=== PATIENT | female | born 1940 | race Caucasian/White ===

== ENCOUNTER 2021-11-25 10:02 | Emergency (ER) | payer MEDICARE, BC ==
[2021-11-25] MEDS ORDERED: Losartan 50 MG Tab PO ONE (11:22)
== END 2021-11-25 11:57 | disposition home or self-care (01) ==
LOC: JP.ED 10:02
DX: I10 Essential (primary) hypertension (principal); R41.0 Disorientation, unspecified; N30.00 Acute cystitis without hematuria
CPT/HCPCS: 36415; 70450; 80053; 81001; 84443; 85025; 87086; 87088; 87186; 99283; 99285-25; A9270-GY

== ENCOUNTER 2024-02-11 13:59 | Emergency (ER) | payer MEDICARE, BC ==
[2024-02-11 14:37] LABS: BASOPHILS ABSOLUTE AUTO 0.02 K/uL (0.00-0.10); BASOPHILS PERCENT AUTO 0.2 % (0.1-1.3); HEMATOCRIT 39.1 % (34.3-46.0); HEMOGLOBIN 13.8 g/dL (11.2-15.5); IMMATURE GRAN ABSOLUTE AUTO 0.04 K/uL (0.00-0.23); IMMATURE GRAN PERCENT AUTO 0.4 % (0.0-0.7); LYMPHOCYTES ABSOLUTE AUTO 0.44 K/uL (0.8-3.3); LYMPHOCYTES PERCENT AUTO 4.2 % (11.4-47.7); MEAN CORPUSCULAR HEMOGLOBIN 31.1 pg (31.6-35.5); MEAN CORPUSCULAR HGB CONC 35.3 g/dL (31.6-35.5); MEAN CORPUSCULAR VOLUME 88.1 fL (81.4-99.0); MONOCYTES ABSOLUTE AUTO 0.24 K/uL (0.20-0.90); MONOCYTES PERCENT AUTO 2.3 % (3.3-12.6); NEUTROPHILS ABSOLUTE AUTO 9.69 K/uL (1.0-7.6); NEUTROPHILS PERCENT AUTO 92.9 % (40.0-78.1); PLATELET COUNT,PLT 211 K/uL (130-375); RED BLOOD CELL COUNT 4.44 M/uL (3.77-5.24); WHITE BLOOD CELL COUNT,WBC 10.4 K/uL (3.2-11.0)
[2024-02-11 14:57] LABS: A/G RATIO 0.8 (1.2-2.2); ALANINE AMINOTRANSFERASE,ALT 25 U/L (12-78); ALBUMIN 3.5 g/dL (3.4-5.0); ALKALINE PHOSPHATASE 110 U/L (46-116); ASPARTATE AMNIOTRANSFERASE,AST 23 U/L (15-37); BILIRUBIN TOTAL 0.8 mg/dL (0.2-1.0); BLOOD UREA NITROGEN,BUN 13 mg/dL (7-18); CALCIUM 8.9 mg/dL (8.5-10.1); CARBON DIOXIDE,CO2 26 mmol/L (21-32); CHLORIDE,CL 99 mmol/L (100-108); CREATINE KINASE,CK 110 U/L (26-192); CREATININE 0.9 mg/dL (0.6-1.0); EST CRCL DRUG DOSING (CG) 36.99 mL/min; ESTIMATED GFR 64 mL/min (>60); GLUCOSE RANDOM 330 mg/dL (74-106); POTASSIUM,K 3.3 mmol/L (3.6-5.2); PROTEIN TOTAL,TP 7.9 g/dL (6.4-8.2); SODIUM,NA 137 mmol/L (140-148)
[2024-02-11 14:58] LABS: ANION GAP 15.3 mmol/L (5.0-14.0)
[2024-02-11] MEDS: Sodium Chloride 0.9% 1,000 ML IV ONE (15:30)
[2024-02-11 16:35] LABS: APPEARANCE,URINE CLEAR (CLEAR); BILIRUBIN,URINE NEGATIVE (NEGATIVE); GLUCOSE,URINE >=1000 mg/dL (NEGATIVE); KETONES,URINE 40 mg/dL (NEGATIVE); LEUKOCYTE ESTERASE,URINE NEGATIVE (NEGATIVE); NITRITE,URINE NEGATIVE (NEGATIVE); OCCULT BLOOD,URINE SMALL (NEGATIVE); PH,URINE 6.5 (5.0-8.0); PROTEIN,URINE 100 mg/dL (NEGATIVE); UROBILINOGEN,URINE 0.2 EU/dL (0.2-1.0)
[2024-02-11 16:42] LABS: AMORPHOUS SEDIMENT,URINE NOT SEEN; BACTERIA,URINE FEW; COLOR,URINE OTHER (YELLOW); EPITHELIAL CELLS,URINE RARE; MUCUS,URINE FEW; RBC,URINE 0-5 (0-5); WBC,URINE NOT SEEN (0-5)
[2024-02-11 16:42] LABS: AMPHETAMINES SCREEN, URINE NEGATIVE (NEGATIVE); BARBITURATE SCREEN,URINE NEGATIVE (NEGATIVE); BENZODIAZEPINES SCREEN,URINE NEGATIVE (NEGATIVE); METHADONE SCREEN, URINE NEGATIVE (NEGATIVE); METHAMPHETAMINES SCREEN, URINE NEGATIVE (NEGATIVE); OXYCODONE SCREEN,URINE NEGATIVE (NEGATIVE); PROPOXYPHENE SCREEN,URINE NEGATIVE (NEGATIVE); THC SCREEN,URINE 50 NG/ML NEGATIVE (NEGATIVE)
== END 2024-02-11 17:41 | disposition home or self-care (01) ==
LOC: JP.ED 13:59
DX: S01.01XA Laceration without foreign body of scalp, initial encounter (principal); S09.90XA Unspecified injury of head, initial encounter; Z79.890 Hormone replacement therapy; Z79.899 Other long term (current) drug therapy; X58.XXXA Exposure to other specified factors, initial encounter
CPT/HCPCS: 36415; 70450; 71045; 72125; 76377; 80053; 80305; 81001; 82550; 85025; 96360; 96361; 99284; J7030